=== PATIENT | male | born 1965 | race Two or more races ===

== ENCOUNTER 2023-04-14 18:57 | Inpatient (IN) | payer OTHER ==
[~2023-04-14] VITALS: Ht 160 cm; Wt 86.2 kg
[2023-04-14 19:49] LABS: BASOPHILS # (AUTO) 0.1 K/uL (0.0-0.2); BASOPHILS % (AUTO) 0.5 % (0.0-2.0); HEMATOCRIT 43 % (39-51); HEMOGLOBIN 13.9 g/dL (13.5-17.5); LYMPHOCYTES # (AUTO) 1.8 K/uL (0.8-4.8); LYMPHOCYTES % (AUTO) 5.9 % (20.0-44.0); MEAN CORPUSCULAR HEMOGLOBIN 26 PG (26.0-33.0); MEAN CORPUSCULAR HGB CONC 33 g/dl (31.0-36.0); MEAN CORPUSCULAR VOLUME 81 fL (80-96); MONOCYTES # (AUTO) 2.2 K/uL (0.1-1.30); MONOCYTES % (AUTO) 7.5 % (2.0-12.0); NEUTROPHILS # (AUTO) 25.6 K/uL (1.8-8.9); NEUTROPHILS % (AUTO) 86.1 % (43.0-81.0); PLATELET COUNT (AUTO) 212 K/uL (150-450); RED BLOOD CELL COUNT(AUTO) 5.29 MIL/uL (4.5-6.0); RED CELL DISTRIBUTION WIDTH 15.5 % (11.5-15.0); WHITE BLOOD COUNT (AUTO) 29.7 K/uL (4.3-11.0)
[2023-04-14 20:03] LABS: CALCIUM, SERUM 9.1 mg/dL (8.5-10.1); CARBON DIOXIDE 27 mmol/L (21-32); CHLORIDE 96 mmol/L (98-107); CREATININE 1.9 mg/dL (0.6-1.3); GLUCOSE 150 mg/dL (74-106); SODIUM SERUM 134 mmol/L (136-145); UREA NITROGEN, BLOOD 37 mg/dL (7-18)
[2023-04-14 20:08] LABS: POTASSIUM 2.3 mmol/L (3.5-5.1)
[2023-04-14] MEDS ORDERED: POTASSIUM CHLORIDE 20 MEQ TAB.PRT.SR PO ONE ×2 (20:24→20:30)
[2023-04-14 20:26] LABS: APPEARANCE,URINE CLEAR (CLEAR); BILIRUBIN,URINE NEGATIVE (NEGATIVE); BLOOD, URINE 2+ Ery/uL (NEGATIVE); COLOR,URINE YELLOW (YELLOW); KETONES,URINE NEGATIVE (NEGATIVE); LEUKOCYTE ESTERASE ,URINE 2+ (NEGATIVE); NITRITE, URINE NEGATIVE (NEGATIVE); PROTEIN,URINE TRACE mg/dl (NEGATIVE); UGLUCOSE NEGATIVE (NEGATIVE); UROBILINOGEN,URINE 0.2 EU/dL (0.2)
[2023-04-14 20:56] LABS: ADD URINE CULTURE YES; BACTERIA,URINE Moderate /HPF (None Seen); WBC,URINE 21-50 /HPF (0-3)
[2023-04-14 20:58] LABS: SQUAMOUS EPITHELIAL CELL,UR Few /HPF (None Seen)
[2023-04-14] MEDS ORDERED: VANCOMYCIN 1 GM in IV D5W 250 ML IV ONE (21:00)
[2023-04-14] MEDS ORDERED: IV NS 0.9% 1,000 ML BAG IV ONE (21:00)
[2023-04-14] MEDS ORDERED: CEFEPIME 2 GM in IV D5W 50 ML IV ONE (21:00)
[2023-04-14] MEDS ORDERED: CEFEPIME 1 GM VIAL ONE (21:06)
[2023-04-14] MEDS ORDERED: VANCOMYCIN 1 GM /D5W 250 ML PB IV ONE (22:19)
[2023-04-14 23:45] VITALS: BP 112/69; TEMP 98.8; O2SAT 98
[2023-04-15] MEDS ORDERED: MAGNESIUM HYDROXIDE 30 ML UDC PO PRN
[2023-04-15] MEDS ORDERED: MAG HYDROX/AL HYDROX/SIMETH 30 ML UDC PO PRN
[2023-04-15] MEDS ORDERED: IV NS 0.9% 1,000 ML IV PRN
[2023-04-15] MEDS ORDERED: ACETAMINOPHEN 325 MG TABLET PO PRN
[2023-04-15] MEDS ORDERED: ONDANSETRON HCL/PF 4 MG/2 ML VIAL IVP PRN
[2023-04-15] MEDS ORDERED: Z GUARD REMEDY 4 OZ OINT TP PRN
[2023-04-15] MEDS ORDERED: ZOLPIDEM TARTRATE 5 MG TABLET PO PRN
[2023-04-15] MEDS ORDERED: VANCOMYCIN 500 MG in IV D5W 100ml IV ONE (00:30)
[2023-04-15] MEDS ORDERED: PROMETHAZINE HCL 25 MG TABLET ONE (00:47)
[2023-04-15] MEDS: PROMETHAZINE HCL 25 MG TABLET PO PRN ×3 (01:00→21:58)
[2023-04-15 04:00] VITALS: BP 118/75; TEMP 98; O2SAT 96
[2023-04-15 05:46] LABS: BASOPHILS # (AUTO) 0.1 K/uL (0.0-0.2); BASOPHILS % (AUTO) 0.6 % (0.0-2.0); EOSINOPHILS # (AUTO) 0.1 K/uL (0.0-0.7); EOSINOPHILS % (AUTO) 0.2 % (0.0-6.0); HEMATOCRIT 39 % (39-51); HEMOGLOBIN 12.7 g/dL (13.5-17.5); LYMPHOCYTES # (AUTO) 2.3 K/uL (0.8-4.8); LYMPHOCYTES % (AUTO) 9.9 % (20.0-44.0); MEAN CORPUSCULAR HEMOGLOBIN 26 PG (26.0-33.0); MEAN CORPUSCULAR HGB CONC 33 g/dl (31.0-36.0); MEAN CORPUSCULAR VOLUME 81 fL (80-96); MONOCYTES # (AUTO) 1.6 K/uL (0.1-1.30); MONOCYTES % (AUTO) 6.7 % (2.0-12.0); NEUTROPHILS # (AUTO) 19.6 K/uL (1.8-8.9); NEUTROPHILS % (AUTO) 82.6 % (43.0-81.0); PLATELET COUNT (AUTO) 190 K/uL (150-450); RED BLOOD CELL COUNT(AUTO) 4.87 MIL/uL (4.5-6.0); RED CELL DISTRIBUTION WIDTH 15.8 % (11.5-15.0); WHITE BLOOD COUNT (AUTO) 23.8 K/uL (4.3-11.0)
[2023-04-15 06:17] LABS: THYROID STIMULATING HORMONE 1.032 uIU/mL (0.358-3.74)
[2023-04-15 06:42] LABS: CALCIUM, SERUM 8.6 mg/dL (8.5-10.1); CREATININE 1.5 mg/dL (0.6-1.3); MAGNESIUM 1.6 mg/dL (1.8-2.4); PHOSPHORUS 2.8 mg/dL (2.5-4.9)
[2023-04-15 07:00] VITALS: BP 130/76; TEMP 99.3; O2SAT 94
[2023-04-15] MEDS ORDERED: DEXTROSE 50%-WATER 50 ML DISP.SYRIN IV PRN (07:00)
[2023-04-15 07:01] LABS: POTASSIUM 2.1 mmol/L (3.5-5.1)
[2023-04-15] MEDS: BLOOD SUGAR DIAGNOSTIC 1 EACH STRIP VI SCH ×4 (07:11→21:08)
[2023-04-15] MEDS: PANTOPRAZOLE 40 MG TABLET.DR PO SCH (07:44)
[2023-04-15] MEDS ORDERED: VANCOMYCIN 500 MG in IV D5W 100 ML IV ONE (08:00)
[2023-04-15] MEDS ORDERED: METO5TAB7 PO (08:03)
[2023-04-15] MEDS ORDERED: ASCO-352 PO (08:03)
[2023-04-15] MEDS ORDERED: CHLO25TA23 PO (08:03)
[2023-04-15] MEDS ORDERED: FURO40TA5 PO (08:03)
[2023-04-15] MEDS ORDERED: MULT-24 PO (08:03)
[2023-04-15] MEDS ORDERED: POTA20TA83 PO (08:03)
[2023-04-15] MEDS ORDERED: MELA5TAB PO (08:03)
[2023-04-15] MEDS ORDERED: FAMO20TA8 PO (08:03)
[2023-04-15] MEDS ORDERED: MAGN400O6 PO (08:03)
[2023-04-15] MEDS ORDERED: IBUP-1955 PO (08:03)
[2023-04-15] MEDS ORDERED: LEVO50TA8 PO (08:03)
[2023-04-15] MEDS ORDERED: ACET-868 PO (08:03)
[2023-04-15] MEDS ORDERED: HYDR-4077 PO (08:03)
[2023-04-15] MEDS ORDERED: THIA100T68 PO (08:03)
[2023-04-15] MEDS ORDERED: MAG30ORA PO (08:03)
[2023-04-15] MEDS: VANCOMYCIN HCL 0.75 GM in IV D5W 250 ML IV SCH ×2 (08:56→19:37)
[2023-04-15] MEDS ORDERED: MAGNESIUM OXIDE 400 MG TABLET PO ONE (09:00)
[2023-04-15] MEDS ORDERED: POTASSIUM CHLORIDE 20 MEQ TAB.PRT.SR PO ONE (10:00)
[2023-04-15 12:00] VITALS: BP 118/68; TEMP 98.7; O2SAT 95
[2023-04-15] MEDS: INSULIN REGULAR, HUMAN 100 UNIT/ML 3 ML VIAL SQ PRN ×2 (12:02→17:18)
[2023-04-15] MEDS: Potassium Chloride 20 MEQ in IV NS 0.9% 1,000 ML IV SCH (13:54)
[2023-04-15 15:39] LABS: CALCIUM, SERUM 8.7 mg/dL (8.5-10.1); CREATININE 1.4 mg/dL (0.6-1.3); POTASSIUM 4.2 mmol/L (3.5-5.1)
[2023-04-15 16:00] VITALS: BP 117/71; TEMP 98.9; O2SAT 95
[2023-04-15 20:00] VITALS: BP 104/61; TEMP 99.6; O2SAT 94
[2023-04-15] MEDS: CEFEPIME 2 GM in IV D5W 100 ML IV SCH (20:56)
[2023-04-15] MEDS: *INSULIN REGULAR(HUMULIN R)HUM 100 UNIT/ML VIAL SQ PRN (21:08)
[2023-04-15] MEDS ORDERED: VANCOMYCIN 1.25 GM in IV D5W 250 ML IV SCH (23:00)
[2023-04-16] VITALS: BP 111/78; TEMP 97.2; O2SAT 99
[2023-04-16] MEDS: Potassium Chloride 20 MEQ in IV NS 0.9% 1,000 ML IV SCH (02:28)
[2023-04-16 04:00] VITALS: BP 127/74; TEMP 97.8; O2SAT 99
[2023-04-16 05:56] LABS: BASOPHILS # (AUTO) 0.1 K/uL (0.0-0.2); BASOPHILS % (AUTO) 0.5 % (0.0-2.0); EOSINOPHILS # (AUTO) 0.1 K/uL (0.0-0.7); EOSINOPHILS % (AUTO) 0.6 % (0.0-6.0); HEMATOCRIT 40 % (39-51); HEMOGLOBIN 13.2 g/dL (13.5-17.5); LYMPHOCYTES # (AUTO) 1.4 K/uL (0.8-4.8); LYMPHOCYTES % (AUTO) 11.4 % (20.0-44.0); MEAN CORPUSCULAR HEMOGLOBIN 27 PG (26.0-33.0); MEAN CORPUSCULAR HGB CONC 33 g/dl (31.0-36.0); MEAN CORPUSCULAR VOLUME 81 fL (80-96); MONOCYTES % (AUTO) 8.1 % (2.0-12.0); NEUTROPHILS # (AUTO) 10.1 K/uL (1.8-8.9); NEUTROPHILS % (AUTO) 79.4 % (43.0-81.0); PLATELET COUNT (AUTO) 209 K/uL (150-450); RED BLOOD CELL COUNT(AUTO) 4.99 MIL/uL (4.5-6.0); RED CELL DISTRIBUTION WIDTH 15.5 % (11.5-15.0); WHITE BLOOD COUNT (AUTO) 12.7 K/uL (4.3-11.0)
[2023-04-16 06:05] LABS: BILIRUBIN,TOTAL 0.6 mg/dL (0.2-1.0); CALCIUM, SERUM 8.7 mg/dL (8.5-10.1); CREATININE 1.2 mg/dL (0.6-1.3); PHOSPHORUS 2.1 mg/dL (2.5-4.9); TOTAL PROTEIN, SERUM 7.4 g/dL (6.4-8.2)
[2023-04-16] MEDS: INSULIN REGULAR, HUMAN 100 UNIT/ML 3 ML VIAL SQ PRN (06:35)
[2023-04-16] MEDS: BLOOD SUGAR DIAGNOSTIC 1 EACH STRIP VI SCH ×4 (06:35→22:12)
[2023-04-16 06:38] LABS: POTASSIUM 2.7 mmol/L (3.5-5.1)
[2023-04-16] MEDS ORDERED: POTASSIUM CHLORIDE 20 MEQ TAB.PRT.SR PO ONE ×2 (08:00→17:00)
[2023-04-16 08:09] VITALS: BP 139/81; TEMP 99.2; O2SAT 96
[2023-04-16] MEDS: PANTOPRAZOLE 40 MG TABLET.DR PO SCH (08:14)
[2023-04-16] MEDS: VANCOMYCIN HCL 0.75 GM in IV D5W 250 ML IV SCH ×2 (08:23→20:57)
[2023-04-16] MEDS: POTASSIUM PHOSPHATE MM 7.5 MMOL in IV NS 0.9% 100 ML IV SCH ×4 (09:09→23:37)
[2023-04-16] MEDS: PROMETHAZINE HCL 25 MG TABLET PO PRN ×2 (11:03→19:49)
[2023-04-16 16:01] VITALS: BP 96/57; TEMP 98.5; O2SAT 96
[2023-04-16] MEDS ORDERED: NS 0.9% IV SCH (19:00)
[2023-04-16] MEDS ORDERED: SODIUM PHOSPHATE IV SCH (19:00)
[2023-04-16 20:00] VITALS: BP 112/74; TEMP 98.8; O2SAT 96
[2023-04-16] MEDS: CEFEPIME 2 GM in IV D5W 100 ML IV SCH (21:00)
[2023-04-16] MEDS: *INSULIN REGULAR(HUMULIN R)HUM 100 UNIT/ML VIAL SQ PRN (22:15)
[2023-04-17] VITALS: BP 101/59; TEMP 97.9; O2SAT 94
[2023-04-17] MEDS: INSULIN REGULAR, HUMAN 100 UNIT/ML 3 ML VIAL SQ PRN ×2 (07:26→11:38)
[2023-04-17] MEDS: BLOOD SUGAR DIAGNOSTIC 1 EACH STRIP VI SCH ×2 (07:26→11:37)
[2023-04-17] MEDS: PANTOPRAZOLE 40 MG TABLET.DR PO SCH (07:35)
[2023-04-17 07:40] LABS: BASOPHILS # (AUTO) 0.1 K/uL (0.0-0.2); BASOPHILS % (AUTO) 0.8 % (0.0-2.0); EOSINOPHILS # (AUTO) 0.1 K/uL (0.0-0.7); EOSINOPHILS % (AUTO) 1.1 % (0.0-6.0); HEMATOCRIT 42 % (39-51); HEMOGLOBIN 13.3 g/dL (13.5-17.5); LYMPHOCYTES # (AUTO) 1.7 K/uL (0.8-4.8); LYMPHOCYTES % (AUTO) 25.3 % (20.0-44.0); MEAN CORPUSCULAR HEMOGLOBIN 26 PG (26.0-33.0); MEAN CORPUSCULAR HGB CONC 32 g/dl (31.0-36.0); MEAN CORPUSCULAR VOLUME 82 fL (80-96); MONOCYTES # (AUTO) 0.8 K/uL (0.1-1.30); MONOCYTES % (AUTO) 12.8 % (2.0-12.0); PLATELET COUNT (AUTO) 214 K/uL (150-450); RED BLOOD CELL COUNT(AUTO) 5.06 MIL/uL (4.5-6.0); WHITE BLOOD COUNT (AUTO) 6.6 K/uL (4.3-11.0)
[2023-04-17 08:00] VITALS: BP 118/71; TEMP 98.6; O2SAT 96
[2023-04-17 08:06] LABS: PTH, INTACT 33 pg/mL (15-65)
[2023-04-17 08:07] LABS: CALCIUM, SERUM 8.3 mg/dL (8.5-10.1); CREATININE 1.2 mg/dL (0.6-1.3); PHOSPHORUS 2.8 mg/dL (2.5-4.9); POTASSIUM 3.2 mmol/L (3.5-5.1)
[2023-04-17] MEDS: VANCOMYCIN HCL 0.75 GM in IV D5W 250 ML IV SCH (08:44)
[2023-04-17 09:08] LABS: *SPE A/G RATIO 0.8 (0.7-1.7); *SPE ALBUMIN 3.1 g/dL (2.9-4.4); *SPE ALPHA-1-GLOBULIN 0.4 g/dL (0.0-0.4); *SPE ALPHA-2-GLOBULIN 0.8 g/dL (0.4-1.0); *SPE BETA GLOBULIN 1.4 g/dL (0.7-1.3); *SPE M-SPIKE Not Observed g/dL (Not Observed); *SPE PROTEIN TOTAL 7.1 g/dL (6.0-8.5); *SPEGAMMA GLOBULIN 1.4 g/dL (0.4-1.8)
[2023-04-17] MEDS ORDERED: LEVO500T90 PO (09:40)
[2023-04-17] MEDS ORDERED: CEFEPIME 1 GM in IV D5W 50 ML IV SCH (10:00)
[2023-04-17] MEDS ORDERED: POTASSIUM CHLORIDE 20 MEQ TAB.PRT.SR PO ONE (10:00)
[2023-04-17 11:57] VITALS: BP 109/74; TEMP 98.6; O2SAT 94
== END 2023-04-17 17:00 | DRG 463 ==
LOC: ER 19:18 → MED 22:54 → TELE 04-15 01:37 → MED 04-17 12:23
PROVIDERS: ADMIT Student in an Organized Health Care Education/Training Program; ATTEND Internal Medicine
DX: N39.0 Urinary tract infection, site not specified (principal); N17.0 Acute kidney failure with tubular necrosis; E87.1 Hypo-osmolality and hyponatremia; E83.42 Hypomagnesemia; E11.9 Type 2 diabetes mellitus without complications; B96.89 Other specified bacterial agents as the cause of diseases classified elsewhere; I11.0 Hypertensive heart disease with heart failure; I50.9 Heart failure, unspecified; E86.1 Hypovolemia; E87.6 Hypokalemia; G40.909 Epilepsy, unspecified, not intractable, without status epilepticus; Z20.822 Contact with and (suspected) exposure to COVID-19
CPT/HCPCS: 36415; 71045-TC; 76770-TC; 80048-TC; 80053-TC; 80202-TC; 81001; 82550-TC; 82962-TC; 83605-TC; 83735-TC; 83970; 84100-TC; 84132-TC; 84155; 84165; 84443-TC; 84484-TC; 85025-TC; 87040-TC; 87086-TC; A4223; C9803; G0378; J0692; J1815; J3370; J3480; J3490; J7030; J7050; J7060; Q0169